=== PATIENT | female | born 1995 | race Caucasian/White ===

== ENCOUNTER 2021-01-18 10:04 | Emergency (ER) | payer MEDICAID ==
[~2021-01-18] VITALS: Ht 157.5 cm; Wt 62.0 kg
[2021-01-18] MEDS ORDERED: SODIUM CHLORIDE 0.9% 1,000 ML IV ONE (10:15)
[2021-01-18 10:48] LABS: BASOPHILS % 0.7 % (0.0-2.0); EOSINOPHILS % 0.1 % (0.0-5.0); HEMATOCRIT. 38.5 % (36.0-48.0); MEAN CORPUSCULAR HEMOGLOBIN 29.3 pg (28.0-32.0); MEAN CORPUSCULAR VOLUME 86.6 fL (81.0-99.0); MEAN PLATELET VOLUME 7.5 fl (7.4-10.4); MONOCYTES % 3.8 % (2.0-8.0); NEUTROPHILS % 74.4 % (40.0-76.0); PLATELET 272 x1000/uL (130-400); RED BLOOD CELL COUNT 4.45 mill/uL (4.2-5.4); RED CELL DISTRIBUTION WIDTH 15.6 % (11.6-14.6)
[2021-01-18 10:53] LABS: CHLORIDE 106 mEq/L (98-107)
[2021-01-18 11:11] LABS: CLARITY URINE TURBID (CLEAR); COLOR URINE DARK YELLOW (YELLOW); KETONES URINE NEGATIVE (NEGATIVE); LEUKOCYTE ESTERASE URINE 3+ (NEGATIVE); NITRITE URINE POSITIVE (NEGATIVE); OCCULT BLOOD URINE 3+ (NEGATIVE); PROTEIN URINE 3+ (NEGATIVE); SPECIFIC GRAVITY URINE 1.025 (1.005-1.030)
[2021-01-18 11:16] LABS: B-HCG QUANTITATIVE 194871 mIU/mL (<3)
[2021-01-18 11:29] LABS: *AMPHETAMINES SCREEN URINE NEGATIVE (NEGATIVE); *BARBITURATES SCREEN URINE NEGATIVE (NEGATIVE)
[2021-01-18 11:30] LABS: *BENZODIAZEPINES SCREEN URINE NEGATIVE (NEGATIVE); *COCAINE SCREEN URINE NEGATIVE (NEGATIVE); CANNABINOID URINE SCREEN NEGATIVE (NEGATIVE); METHADONE URINE SCREEN NEGATIVE (NEGATIVE); OPIATES URINE SCREEN NEGATIVE (NEGATIVE); PHENCYCLIDINE URINE SCREEN NEGATIVE (NEGATIVE)
[2021-01-18] MEDS ORDERED: CEFAZOLIN 1000MG PREMIX 50 ML IV ONE (12:00)
[2021-01-18] MEDS ORDERED: PREN-55 MT (14:04)
[2021-01-18] MEDS ORDERED: NITR-87 MT (14:04)
[2021-01-18 14:10] VITALS: BP 100/58
== END 2021-01-18 14:10 | disposition home or self-care (01) ==
LOC: ER 10:04
DX: O20.0 Threatened abortion (principal); O23.41 Unspecified infection of urinary tract in pregnancy, first trimester; N39.0 Urinary tract infection, site not specified; Z3A.08 8 weeks gestation of pregnancy
CPT/HCPCS: 36415; 76830; 76856; 80053; 80305; 81003; 81025; 84702; 85025; 86850; 86900; 86901; 87077; 87086; 87186; 96361; 96365; 99284; J0690; J7030

== ENCOUNTER 2022-09-26 02:10 | Inpatient (IN) | payer OTHER, MEDICAID ==
[~2022-09-26] VITALS: Ht 157.5 cm; Wt 68.0 kg
[~2022-09-26 02:10] MED LIST: IBUP-2030 PO; NITR-87 MT; PREN-55 MT
[2022-09-26] MEDS ORDERED: METHYLERGONOVINE MALEATE 0.2 MG/ML IM PRN ×2 (03:15→04:15)
[2022-09-26] MEDS ORDERED: LIDOCAINE HCL 1% 20ML VIAL (Pyxis) INJ INFIL SCH (03:15)
[2022-09-26] MEDS ORDERED: NALOXONE HCL 0.4 MG/ML 1ML VIAL IM PRN (03:15)
[2022-09-26] MEDS: OXYTOCIN 30 UNITS/500ML NS PMX 500 ML IV SCH ×2 (04:14→06:10)
[2022-09-26] MEDS ORDERED: BENZOCAINE/LANOLIN/ALOE VERA SPRAY TOP PRN (04:15)
[2022-09-26] MEDS ORDERED: OXYTOCIN 30 UNITS/500ML NS PMX 500 ML IV SCH (04:15)
[2022-09-26] MEDS ORDERED: DIPHENHYDRAMINE 25MG CAPSULE PO PRN (04:15)
[2022-09-26] MEDS ORDERED: HEMORRHOIDAL SUPP PR PRN (04:15)
[2022-09-26] MEDS ORDERED: ACETAMINOPHEN WITH CODEINE 300/30MG TABLET PO PRN (04:15)
[2022-09-26] MEDS ORDERED: GLYCERIN/WITCH HAZEL LEAF MEDICATED PAD TOP PRN (04:15)
[2022-09-26] MEDS ORDERED: RHO(D) IMMUNE GLOBULIN 300 MCG/SYR IM PRN (04:15)
[2022-09-26] MEDS ORDERED: IBUPROFEN 400MG TABLET PO PRN (04:15)
[2022-09-26] MEDS ORDERED: LACTATED RINGERS 1,000 ML IV SCH (04:30)
[2022-09-26 04:39] LABS: BASOPHILS % 0.3 % (0.0-2.0); EOSINOPHILS % 0.1 % (0.0-5.0); HEMATOCRIT. 30.2 % (36.0-48.0); LYMPHOCYTES % 27.9 % (20.0-50.0); MEAN CORPUSCULAR HEMOGLOBIN 25.4 pg (28.0-32.0); MEAN CORPUSCULAR VOLUME 76.3 fL (81.0-99.0); MEAN PLATELET VOLUME 7.7 fl (7.4-10.4); MONOCYTES % 5.7 % (2.0-8.0); PLATELET 297 x1000/uL (130-400); RED BLOOD CELL COUNT 3.96 mill/uL (4.2-5.4); RED CELL DISTRIBUTION WIDTH 17.8 % (11.6-14.6)
[2022-09-26 04:47] LABS: CLARITY URINE CLOUDY (CLEAR); COLOR URINE YELLOW (YELLOW); KETONES URINE NEGATIVE (NEGATIVE); LEUKOCYTE ESTERASE URINE 3+ (NEGATIVE); NITRITE URINE NEGATIVE (NEGATIVE); OCCULT BLOOD URINE NEGATIVE (NEGATIVE); PROTEIN URINE NEGATIVE (NEGATIVE); SPECIFIC GRAVITY URINE 1.021 (1.005-1.030)
[2022-09-26 04:52] LABS: INR 0.9; PARTIAL THROMBOPLASTIN TIME 24.9 sec (23.4-31.0); PROTHROMBIN TIME 9.9 sec (9.6-11.0)
[2022-09-26 05:01] LABS: *AMPHETAMINES SCREEN URINE NEGATIVE (NEGATIVE); *BARBITURATES SCREEN URINE NEGATIVE (NEGATIVE); *BENZODIAZEPINES SCREEN URINE NEGATIVE (NEGATIVE); *COCAINE SCREEN URINE NEGATIVE (NEGATIVE); CANNABINOID URINE SCREEN NEGATIVE (NEGATIVE); METHADONE URINE SCREEN NEGATIVE (NEGATIVE); OPIATES URINE SCREEN NEGATIVE (NEGATIVE); PHENCYCLIDINE URINE SCREEN NEGATIVE (NEGATIVE)
[2022-09-26 05:18] LABS: HEPATITIS B SURFACE ANTIGEN NEGATIVE
[2022-09-26] MEDS: IBUPROFEN 800MG TABLET PO PRN ×3 (08:26→21:34)
[2022-09-26] MEDS: PRENATAL VIT/FE FUMARATE/FA TABLET PO SCH (08:27)
[2022-09-26 11:00] VITALS: BP 91/55; PULSE 95; RESP 20; TEMP 98.5; O2SAT 98
[2022-09-26] MEDS: SIMETHICONE 80MG TABLET CHEW PO SCH ×3 (14:59→21:34)
[2022-09-26 16:00] VITALS: BP 110/65; PULSE 89; RESP 20; TEMP 97.9
[2022-09-26 20:00] VITALS: BP 88/52; PULSE 74; RESP 18; TEMP 98.2; O2SAT 98
[2022-09-26] MEDS ORDERED: DOCUSATE SODIUM 100MG CAPSULE PO SCH (21:00)
[2022-09-27 03:00] VITALS: BP 90/54; PULSE 82; RESP 18; TEMP 98.6
[2022-09-27] MEDS: IBUPROFEN 800MG TABLET PO PRN (04:44)
[2022-09-27 07:35] LABS: BASOPHILS % 0.3 % (0.0-2.0); EOSINOPHILS % 0.2 % (0.0-5.0); HEMATOCRIT. 27.2 % (36.0-48.0); HEMOGLOBIN. 9.1 g/dL (12.0-16.0); LYMPHOCYTES % 36.3 % (20.0-50.0); MEAN CORPUSCULAR HEMOGLOBIN 26.1 pg (28.0-32.0); MEAN CORPUSCULAR VOLUME 77.9 fL (81.0-99.0); MEAN PLATELET VOLUME 7.4 fl (7.4-10.4); MONOCYTES % 4.5 % (2.0-8.0); NEUTROPHILS % 58.7 % (40.0-76.0); PLATELET 288 x1000/uL (130-400); RED CELL DISTRIBUTION WIDTH 17.8 % (11.6-14.6)
[2022-09-27 07:45] VITALS: BP 91/49; PULSE 87; RESP 18; TEMP 97.9; O2SAT 97
[2022-09-27] MEDS: FERROUS SULFATE 325MG TABLET PO SCH ×2 (09:09→12:30)
[2022-09-27] MEDS: PRENATAL VIT/FE FUMARATE/FA TABLET PO SCH (09:09)
[2022-09-27] MEDS: SIMETHICONE 80MG TABLET CHEW PO SCH ×2 (09:09→13:00)
== END 2022-09-27 14:35 | disposition home or self-care (01) | DRG 807 ==
LOC: 8 EST LDRP 02:10 → OBSVTOIN 02:10 → 8EST 10:00
PROVIDERS: ADMIT Obstetrics & Gynecology; ATTEND Obstetrics & Gynecology
PROC: 10E0XZZ Delivery of Products of Conception, External Approach (ICD-10-PCS; principal; 2022-09-26)
DX: O34.211 Maternal care for low transverse scar from previous cesarean delivery (principal); Z37.0 Single live birth; O69.81X0 Labor and delivery complicated by cord around neck, without compression, not applicable or unspecified; Z3A.37 37 weeks gestation of pregnancy
CPT/HCPCS: 36415; 80305; 81003; 85025; 86592; 86703; 86762; 86850; 86900; 87340; 99281; J7120; A4315; J2590